=== PATIENT | male | born 1945 | race Caucasian/White ===

== ENCOUNTER 2024-07-07 23:31 | Emergency (ER) | payer OTHER, SELFPAY ==
[2024-07-07 23:32] VITALS: BMI 29.7
[2024-07-07 23:52] VITALS: BP 163/102
[2024-07-08] MEDS: TORADOL 60 MG IM (03:11)
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
== END 2024-07-08 04:28 | disposition home or self-care (01) ==
LOC: EMR 23:31
PROVIDERS: EMERGENCY PHYSICIAN Emergency Medicine; FAMILY PHYSICIAN Nurse Practitioner Adult Health
DX: S42.401A Unspecified fracture of lower end of right humerus, initial encounter for closed fracture (principal); S61.411A Laceration without foreign body of right hand, initial encounter; W19.XXXA Unspecified fall, initial encounter; I10 Essential (primary) hypertension; E78.00 Pure hypercholesterolemia, unspecified; N40.0 Benign prostatic hyperplasia without lower urinary tract symptoms; J44.9 Chronic obstructive pulmonary disease, unspecified; F17.200 Nicotine dependence, unspecified, uncomplicated; Z96.611 Presence of right artificial shoulder joint; Z96.653 Presence of artificial knee joint, bilateral
CPT/HCPCS: 99283; 29105; 96372; 73030; 73080